=== PATIENT | female | born 1970 | race African-American/Black ===

== ENCOUNTER 2019-06-26 01:01 | Emergency (ER) | payer MEDICAID ==
[~2019-06-26] VITALS: Ht 162.6 cm; Wt 149.7 kg
[2019-06-26 01:18] VITALS: BP 108/61
[2019-06-26] MEDS ORDERED: BACLOFEN 10 MG TAB PO ONE (03:15)
[2019-06-26] MEDS ORDERED: DexAMETHasone SOD PHOS 10MG/1ML VIAL INJ IM ONE (03:15)
== END 2019-06-26 04:08 | disposition home or self-care (01) ==
LOC: ER 01:03
DX: M62.838 Other muscle spasm (principal); M54.2 Cervicalgia; I10 Essential (primary) hypertension; E11.9 Type 2 diabetes mellitus without complications
CPT/HCPCS: 72040; 96372; 99283; J1100

== ENCOUNTER 2021-04-18 06:48 | Inpatient (IN) | payer MEDICAID ==
[~2021-04-18] VITALS: Ht 160 cm; Wt 184.6 kg
[2021-04-18] MEDS: DOXYCYCLINE 100MG/250ML 250 ML IV SCH
[2021-04-18] MEDS ORDERED: SODIUM CHLORIDE 0.9% 1,000 ML IV ONE (07:45)
[2021-04-18] MEDS ORDERED: SODIUM CHLORIDE 0.9% 1,000 ML IVB ONE (07:45)
[2021-04-18] MEDS ORDERED: AZITHROMYCIN 500MG/ 250ML 250 ML IV ONE (08:15)
[2021-04-18] MEDS ORDERED: hydrOXYchloroQUINE SULFATE 200 MG TAB PO ONE (08:15)
[2021-04-18] MEDS ORDERED: ASCORBIC ACID 500 MG TAB PO ONE (08:15)
[2021-04-18] MEDS ORDERED: ZINC SULFATE 220mg CAP or TAB PO ONE (08:15)
[2021-04-18] MEDS ORDERED: CHOLECALCIFEROL (VITD3) 2,000 UNIT CAP/TAB PO ONE (08:15)
[2021-04-18 08:16] LABS: Basophils # (auto) 0 10 ^3/uL (0-0.2); Basophils % (auto) 0.7 % (0.0-2.0); Eosinophils # (auto) 0 10 ^3/uL (0-0.8); Eosinophils % (auto) 0.4 % (0.0-7.0); Hemoglobin 9.8 g/dL (12.2-16.2); Lymphocytes # (auto) 0.5 10 ^3/uL (0.4-5.4); Lymphocytes % (auto) 13.8 % (10.0-50.0); Mean Corpuscular Hgb Conc. 30.7 g/dL (32.0-36.0); Monocytes # (auto) 0.1 10 ^3/uL (0-1.3); Monocytes % (auto) 3.2 % (0.0-12.0); Neutrophils # (auto) 2.7 10 ^3/uL (1.6-8.6); Neutrophils % (auto) 81.9 % (37.0-80.0); Nucleated Red Blood Cells % 1.9 %; Red Blood Cells 3.17 10^6/uL (4.0-5.20); White Blood Cell 3.3 10^3/uL (4.4-10.8)
[2021-04-18 08:17] LABS: Red Cell Distribution Width 24.4 % (11.8-14.3)
[2021-04-18 08:42] LABS: Calcium 7.5 mg/dL (8.5-10.1); Magnesium 2.3 mg/dL (1.6-2.6)
[2021-04-18 08:51] LABS: BUN/Creatinine Ratio 17.9; Bilirubin, Total 0.3 mg/dL (0.2-1.0); Total Protein 7.8 g/dL (6.4-8.2)
[2021-04-18 08:56] LABS: Potassium 5.8 mmol/L (3.5-5.1)
[2021-04-18 10:23] LABS: Urine Amorphous Crystal FEW /hpf (None Seen); Urine Bacteria FEW /hpf (None Seen); Urine Blood 1+ /uL (Negative); Urine Hyaline Cast FEW /lpf (0 - 2); Urine Specific Gravity 1.018 (1.001-1.035); Urine WBC 2 /hpf (0 - 5)
[2021-04-18] MEDS ORDERED: ONDANSETRON HCL 4 MG/2 ML VIAL IV ONE (10:30)
[2021-04-18] MEDS ORDERED: ALBUTEROL SULF 2.5 MG/0.5ML(0.5%) NEB SOLN NEB ONE (12:30)
[2021-04-18] MEDS ORDERED: CALCIUM CHL 100MG/ML 1,000 MG in D5W 5% 100 ML IV ONE (12:30)
[2021-04-18] MEDS ORDERED: MORPHINE SULF INJ 2 MG/ML SYRINGE 1ML IV PRN ×2 (12:30)
[2021-04-18] MEDS ORDERED: ONDANSETRON HCL 4 MG/2 ML VIAL IV PRN (12:30)
[2021-04-18] MEDS ORDERED: NITROGLYCERIN 0.4 MG SL TAB SL PRN (12:30)
[2021-04-18] MEDS ORDERED: InsuLIN REG 1unit/0.01ml Soln (100units/ml) IV ONE (12:30)
[2021-04-18] MEDS ORDERED: SODIUM CHLORIDE 0.9% 1,000 ML IV SCH (12:30)
[2021-04-18] MEDS ORDERED: SODIUM BICARBONATE 8.4 % INJ 50ML VIAL IV ONE ×2 (12:30→23:30)
[2021-04-18] MEDS ORDERED: ACETAMINOPHEN 500 MG TAB PO PRN (12:30)
[2021-04-18 13:59] VITALS: BP 145/88
[2021-04-18] MEDS ORDERED: DEXTROSE (50%) 50ML SYRG IV PRN (15:00)
[2021-04-18] MEDS: InsuLIN REG 1unit/0.01ml Soln (100units/ml) SC SCH ×2 (17:00→22:00)
[2021-04-18] MEDS: ACCU-CHEK COMFORT CURVE STRIP VI SCH ×2 (17:00→22:00)
[2021-04-18] MEDS: ALBUTEROL SULF HFA 90MCG INH 200DOSE IN SCH ×3 (18:00→23:05)
[2021-04-18] MEDS ORDERED: POM PO (18:12)
[2021-04-18] MEDS ORDERED: FURO20TA3 PO (18:12)
[2021-04-18] MEDS ORDERED: SODI10PA PO (18:12)
[2021-04-18] MEDS ORDERED: PSYL0.524 PO (18:12)
[2021-04-18] MEDS ORDERED: CHOL20007 PO (18:12)
[2021-04-18] MEDS ORDERED: ATOR20TA50 PO (18:12)
[2021-04-18] MEDS ORDERED: FERR325T20 PO (18:12)
[2021-04-18] MEDS ORDERED: AMLO-489 PO (18:12)
[2021-04-18] MEDS ORDERED: CHOL20007 OR (18:12)
[2021-04-18] MEDS ORDERED: HYDR25TA4 PO (18:12)
[2021-04-18] MEDS ORDERED: CARV12.544 PO (18:12)
[2021-04-18] MEDS ORDERED: NIFE1TAB30 PO (18:12)
[2021-04-18 21:55] VITALS: BP 131/103
[2021-04-18] MEDS: FAMOTIDINE (10MG/ML) 2ML VL IV SCH (22:00)
[2021-04-18] MEDS ORDERED: SODIUM BICARBONATE 8.4% INJ 50ML SYRINGE ONE (23:40)
[2021-04-19] VITALS (61 sets, daily range): BP systolic 85–206; BP diastolic 21–91
[2021-04-19] MEDS ORDERED: ETOMIDATE (2MG/ML) 20ML VIAL IV ONE ×2 (03:48→11:51)
[2021-04-19] MEDS ORDERED: SUCCINYLCHOLINE CHLORIDE 20 MG/ML 10ML VIAL IV ONE (03:49)
[2021-04-19] MEDS ORDERED: SODIUM BICARBONATE 8.4% INJ 50ML SYRINGE ONE ×2 (04:06→06:39)
[2021-04-19] MEDS ORDERED: SODIUM BICARBONATE 8.4 % INJ 50ML VIAL IV ONE ×3 (04:07→06:45)
[2021-04-19] MEDS ORDERED: SODIUM BICARBONATE 50ML VIAL 150 ML in SOD CHL 0.45% 1,000 ML IV SCH ×4 (04:15)
[2021-04-19] MEDS: LORazepam 2MG/ML-1ML VIAL IV PRN ×2 (04:20→11:00)
[2021-04-19] MEDS: ALBUTEROL SULF HFA 90MCG INH 200DOSE IN SCH (06:00)
[2021-04-19] MEDS: ACCU-CHEK COMFORT CURVE STRIP VI SCH ×4 (06:10→22:25)
[2021-04-19] MEDS: InsuLIN REG 1unit/0.01ml Soln (100units/ml) SC SCH ×4 (06:11→22:25)
[2021-04-19] MEDS ORDERED: SODIUM BICARBONATE 50ML VIAL 150 ML in D5W 5% 1,000 ML IV SCH (06:45)
[2021-04-19 07:54] LABS: Albumin 2.7 g/dL (3.4-5.0); Calcium 7.3 mg/dL (8.5-10.1)
[2021-04-19 07:58] LABS: BUN/Creatinine Ratio 17.5; Bilirubin, Total 0.2 mg/dL (0.2-1.0); Total Protein 7.7 g/dL (6.4-8.2)
[2021-04-19 08:06] LABS: Potassium 6.3 mmol/L (3.5-5.1)
[2021-04-19] MEDS ORDERED: SODIUM BICARBONATE 8.4% INJ 50ML SYRINGE IV ONE (08:45)
[2021-04-19] MEDS ORDERED: InsuLIN REG 1unit/0.01ml Soln (100units/ml) IV ONE (08:45)
[2021-04-19] MEDS ORDERED: ALBUTEROL SULF 2.5 MG/0.5ML(0.5%) NEB SOLN NEB ONE (08:45)
[2021-04-19] MEDS ORDERED: SODIUM ZIRCONIUM CYCL 10 GM PAK PO ONE (08:45)
[2021-04-19 09:15] LABS: Basophils # (auto) 0 10 ^3/uL (0-0.2); Basophils % (auto) 0.6 % (0.0-2.0); Eosinophils # (auto) 0 10 ^3/uL (0-0.8); Eosinophils % (auto) 0.1 % (0.0-7.0); Hematocrit 33.3 % (36.0-46.0); Hemoglobin 10.2 g/dL (12.2-16.2); Lymphocytes # (auto) 0.4 10 ^3/uL (0.4-5.4); Lymphocytes % (auto) 5.5 % (10.0-50.0); Mean Corpuscular Hemoglobin 30.6 pg (28.0-32.0); Mean Corpuscular Hgb Conc. 30.8 g/dL (32.0-36.0); Mean Corpuscular Volume 99.6 fL (80.0-100.0); Monocytes # (auto) 0.1 10 ^3/uL (0-1.3); Monocytes % (auto) 0.6 % (0.0-12.0); Neutrophils # (auto) 7.4 10 ^3/uL (1.6-8.6); Neutrophils % (auto) 93.2 % (37.0-80.0); Nucleated Red Blood Cells % 0.2 %; Red Blood Cells 3.34 10^6/uL (4.0-5.20); White Blood Cell 7.9 10^3/uL (4.4-10.8)
[2021-04-19 09:17] LABS: Red Cell Distribution Width 24.6 % (11.8-14.3)
[2021-04-19 09:36] LABS: INR 1.16 (0.9-1.15); Partial Thromboplastin Time 28.1 sec (23.0-31.2)
[2021-04-19] MEDS: CHOLECALCIFEROL (VITD3) 1,000UNIT=25mCg TAB PO SCH (10:00)
[2021-04-19] MEDS: FAMOTIDINE (10MG/ML) 2ML VL IV SCH (10:18)
[2021-04-19] MEDS: DOXYCYCLINE 100MG/250ML 250 ML IV SCH ×2 (10:18→21:47)
[2021-04-19] MEDS: methylPREDNISolone SOD SUCC 40 MG/ML VL IV SCH ×3 (10:18→21:47)
[2021-04-19] MEDS: ENOXAPARIN SOD 40 MG/0.4 ML SYRINGE SC SCH (10:19)
[2021-04-19] MEDS ORDERED: MIDAZOLAM DRIP 50 mg/50mL 50 ML IV ONE (11:51)
[2021-04-19] MEDS ORDERED: ROCURONIUM 10MG/ML 10ML VIAL IV ONE (11:51)
[2021-04-19] MEDS ORDERED: fentaNYL Drip 2500mCg/250mlNS 250 ML IV ONE (11:51)
[2021-04-19] MEDS ORDERED: PROPOFOL 100 ML IV ONE (11:52)
[2021-04-19] MEDS ORDERED: NOREPINEPHRINE 8 MG/250ML KIT 250 ML IV ONE (12:28)
[2021-04-19] MEDS: ATRACURIUM BESYLATE 1,000 MG in D5W 5% 150 ML IV SCH (12:45)
[2021-04-19] MEDS ORDERED: HEPARIN 1,000 UNITS/ml 1ML VIAL ONE (12:47)
[2021-04-19] MEDS ORDERED: MIDAZOLAM DRIP 50 mg/50mL 100 ML IV ONE (13:46)
[2021-04-19] MEDS ORDERED: PROPOFOL 200 ML IV ONE (13:46)
[2021-04-19] MEDS ORDERED: MIDODRINE HCL 10 MG TAB NG ONE (14:00)
[2021-04-19] MEDS ORDERED: SODIUM CHL 0.9% 1000 ML BAG XX ONE (14:00)
[2021-04-19] MEDS: ALBUMIN 25% 100 ML IV SCH ×2 (14:00→15:00)
[2021-04-19] MEDS ORDERED: methylPREDNISolone SOD SUCC 40 MG/ML VL IV ONE (14:30)
[2021-04-19] MEDS ORDERED: ACETAMINOPHEN 650 mg PER 20.3 mL UD PO ONE (14:30)
[2021-04-19] MEDS ORDERED: diphenhdrAMINE HCL 50 MG/1 ML VL IV ONE (14:30)
[2021-04-19] MEDS ORDERED: TOCILIZUMAB 400 MG in SODIUM CHL 0.9% 80 ML IV ONE (15:00)
[2021-04-19 15:19] LABS: Calcium 7.1 mg/dL (8.5-10.1); Potassium 5.3 mmol/L (3.5-5.1)
[2021-04-19 15:22] LABS: BUN/Creatinine Ratio 17.5
[2021-04-19] MEDS: fentaNYL Drip 2500mCg/250mlNS 250 ML IV SCH ×2 (17:09→22:35)
[2021-04-19] MEDS: MIDAZOLAM DRIP 50 mg/50mL 50 ML IV SCH ×3 (17:11→23:30)
[2021-04-19] MEDS: PROPOFOL 100 ML IV SCH ×2 (17:11→22:52)
[2021-04-19] MEDS: FUROSEMIDE 40 MG/4 ML VIAL IV SCH (18:00)
[2021-04-19] MEDS: hydrALAZINE HCL 20 MG/ML VL ONE (21:15)
[2021-04-19] MEDS ORDERED: hydrALAZINE HCL 20 MG/ML VL IV PRN (21:15)
[2021-04-20] VITALS (103 sets, daily range): BP systolic 85–208; BP diastolic 47–90
[2021-04-20] MEDS ORDERED: hydrALAZINE HCL 20 MG/ML VL ONE (00:43)
[2021-04-20] MEDS ORDERED: hydrALAZINE HCL 20 MG/ML VL IV ONE (00:45)
[2021-04-20] MEDS: PROPOFOL 100 ML IV SCH ×4 (01:40→22:00)
[2021-04-20] MEDS: MIDAZOLAM DRIP 50 mg/50mL 50 ML IV SCH ×3 (02:50→22:00)
[2021-04-20] MEDS ORDERED: NITROGLYCERIN 50MG/250ML 250 ML IV ONE (03:01)
[2021-04-20] MEDS: NITROGLYCERIN 50MG/250ML 250 ML IV SCH (03:10)
[2021-04-20 04:33] LABS: Basophils # (auto) 0 10 ^3/uL (0-0.2); Basophils % (auto) 0.2 % (0.0-2.0); Eosinophils # (auto) 0 10 ^3/uL (0-0.8); Hematocrit 26.5 % (36.0-46.0); Hemoglobin 8.8 g/dL (12.2-16.2); Lymphocytes # (auto) 0.6 10 ^3/uL (0.4-5.4); Mean Corpuscular Hemoglobin 31.4 pg (28.0-32.0); Mean Corpuscular Volume 95.1 fL (80.0-100.0); Monocytes # (auto) 0.1 10 ^3/uL (0-1.3); Monocytes % (auto) 2.6 % (0.0-12.0); Neutrophils # (auto) 4.8 10 ^3/uL (1.6-8.6); Neutrophils % (auto) 87.2 % (37.0-80.0); Red Blood Cells 2.79 10^6/uL (4.0-5.20); White Blood Cell 5.5 10^3/uL (4.4-10.8)
[2021-04-20 04:55] LABS: Calcium 7.3 mg/dL (8.5-10.1); Potassium 5.1 mmol/L (3.5-5.1)
[2021-04-20 05:01] LABS: Albumin 2.3 g/dL (3.4-5.0); BUN/Creatinine Ratio 17.5; Bilirubin, Total 0.5 mg/dL (0.2-1.0); Total Protein 6.4 g/dL (6.4-8.2)
[2021-04-20] MEDS: ACCU-CHEK COMFORT CURVE STRIP VI SCH ×4 (06:16→22:00)
[2021-04-20] MEDS: FUROSEMIDE 40 MG/4 ML VIAL IV SCH (06:16)
[2021-04-20] MEDS: InsuLIN REG 1unit/0.01ml Soln (100units/ml) SC SCH ×4 (06:17→22:30)
[2021-04-20] MEDS: ATRACURIUM BESYLATE 1,000 MG in D5W 5% 150 ML IV SCH ×2 (06:22→23:59)
[2021-04-20] MEDS ORDERED: SODIUM CHL 0.9% 1000 ML BAG XX ONE (07:00)
[2021-04-20] MEDS ORDERED: ACETAMINOPHEN 650 mg PER 20.3 mL UD PO ONE (10:00)
[2021-04-20] MEDS: FAMOTIDINE (10MG/ML) 2ML VL IV SCH (10:00)
[2021-04-20] MEDS ORDERED: diphenhdrAMINE HCL 50 MG/1 ML VL IV ONE (10:00)
[2021-04-20] MEDS: DOXYCYCLINE 100MG/250ML 250 ML IV SCH ×2 (10:00→22:00)
[2021-04-20] MEDS: CHOLECALCIFEROL (VITD3) 1,000UNIT=25mCg TAB PO SCH (10:00)
[2021-04-20] MEDS: methylPREDNISolone SOD SUCC 40 MG/ML VL IV SCH ×2 (10:00→22:00)
[2021-04-20] MEDS: ENOXAPARIN SOD 40 MG/0.4 ML SYRINGE SC SCH ×2 (10:00→22:00)
[2021-04-20] MEDS ORDERED: TOCILIZUMAB 400 MG in SODIUM CHL 0.9% 80 ML IV ONE (10:30)
[2021-04-20] MEDS ORDERED: FUROSEMIDE 40 MG/4 ML VIAL IV SCH (14:15)
[2021-04-20] MEDS: FUROSEMIDE 100 MG/10ML VIAL IV SCH ×2 (14:31→22:00)
[2021-04-20] MEDS: amLODIPine BESYLATE 5 MG TAB PO SCH (20:30)
[2021-04-20] MEDS: hydrALAZINE HCL 25 MG TAB PO SCH (22:00)
[2021-04-20] MEDS: LABETALOL HCL 200 MG TAB PO SCH (22:00)
[2021-04-20] MEDS: fentaNYL Drip 2500mCg/250mlNS 250 ML IV SCH (22:30)
[2021-04-21] VITALS (105 sets, daily range): BP systolic 107–140; BP diastolic 46–63
[2021-04-21] MEDS: PROPOFOL 100 ML IV SCH (00:30)
[2021-04-21] MEDS: NITROGLYCERIN 50MG/250ML 250 ML IV SCH (04:20)
[2021-04-21 04:30] LABS: Basophils # (auto) 0 10 ^3/uL (0-0.2); Eosinophils # (auto) 0 10 ^3/uL (0-0.8); Hemoglobin 8.4 g/dL (12.2-16.2); Monocytes # (auto) 0.2 10 ^3/uL (0-1.3)
[2021-04-21 04:31] LABS: Basophils % (auto) 0.3 % (0.0-2.0); Hematocrit 24.9 % (36.0-46.0); Lymphocytes # (auto) 0.5 10 ^3/uL (0.4-5.4); Lymphocytes % (auto) 6.8 % (10.0-50.0); Mean Corpuscular Hemoglobin 32.1 pg (28.0-32.0); Mean Corpuscular Hgb Conc. 33.7 g/dL (32.0-36.0); Monocytes % (auto) 3.3 % (0.0-12.0); Neutrophils # (auto) 6.3 10 ^3/uL (1.6-8.6); Neutrophils % (auto) 89.6 % (37.0-80.0); Nucleated Red Blood Cells % 1.3 %; Red Blood Cells 2.62 10^6/uL (4.0-5.20)
[2021-04-21 04:43] LABS: Red Cell Distribution Width 23.5 % (11.8-14.3)
[2021-04-21 04:46] LABS: BUN/Creatinine Ratio 15.8; Calcium 7.2 mg/dL (8.5-10.1); Potassium 4.7 mmol/L (3.5-5.1)
[2021-04-21] MEDS: InsuLIN REG 1unit/0.01ml Soln (100units/ml) SC SCH ×5 (06:12→23:45)
[2021-04-21] MEDS: FUROSEMIDE 100 MG/10ML VIAL IV SCH ×3 (06:12→21:38)
[2021-04-21] MEDS: ACCU-CHEK COMFORT CURVE STRIP VI SCH ×5 (06:12→23:44)
[2021-04-21] MEDS: LABETALOL HCL 200 MG TAB PO SCH ×2 (10:00→22:00)
[2021-04-21] MEDS: fentaNYL Drip 2500mCg/250mlNS 250 ML IV SCH (10:22)
[2021-04-21] MEDS: DOXYCYCLINE 100MG/250ML 250 ML IV SCH ×2 (10:22→21:39)
[2021-04-21] MEDS: methylPREDNISolone SOD SUCC 40 MG/ML VL IV SCH ×2 (10:23→21:38)
[2021-04-21] MEDS: FAMOTIDINE (10MG/ML) 2ML VL IV SCH (10:23)
[2021-04-21] MEDS: hydrALAZINE HCL 25 MG TAB PO SCH ×2 (10:23→22:00)
[2021-04-21] MEDS: ENOXAPARIN SOD 40 MG/0.4 ML SYRINGE SC SCH ×2 (10:23→21:38)
[2021-04-21] MEDS: amLODIPine BESYLATE 5 MG TAB PO SCH (10:24)
[2021-04-21] MEDS: CHOLECALCIFEROL (VITD3) 1,000UNIT=25mCg TAB PO SCH (10:24)
[2021-04-21] MEDS ORDERED: DEXTROSE (50%) 50ML SYRG IV PRN (11:45)
[2021-04-21] MEDS ORDERED: metOLazone 5 MG TAB PO ONE (12:45)
[2021-04-21] MEDS ORDERED: SODIUM CHL 0.9% 1000 ML BAG XX ONE (13:30)
[2021-04-21] MEDS: ATRACURIUM BESYLATE 1,000 MG in D5W 5% 150 ML IV SCH (17:36)
[2021-04-21] MEDS ORDERED: EPOETIN ALFA-EPBX 10,000 UNIT/1ML VIAL SC ONE (21:00)
[2021-04-22] VITALS (107 sets, daily range): BP systolic 97–214; BP diastolic 35–97
[2021-04-22] MEDS: ALBUTEROL SULF 2.5 MG/0.5ML(0.5%) NEB SOLN NEB PRN ×2 (00:02→06:00)
[2021-04-22] MEDS: IPRATROPIUM BROM 0.5 MG/2.5ML INH SOL NEB PRN ×2 (00:03→06:00)
[2021-04-22] MEDS: PROPOFOL 100 ML IV SCH ×3 (00:24→15:30)
[2021-04-22] MEDS: MIDAZOLAM DRIP 50 mg/50mL 50 ML IV SCH ×3 (00:24→11:30)
[2021-04-22] MEDS: fentaNYL Drip 2500mCg/250mlNS 250 ML IV SCH ×2 (00:28→09:23)
[2021-04-22 04:20] LABS: BUN/Creatinine Ratio 16.8; Potassium 4.6 mmol/L (3.5-5.1)
[2021-04-22] MEDS: ACCU-CHEK COMFORT CURVE STRIP VI SCH ×3 (06:03→18:54)
[2021-04-22] MEDS: InsuLIN REG 1unit/0.01ml Soln (100units/ml) SC SCH ×3 (06:04→18:55)
[2021-04-22] MEDS: FUROSEMIDE 100 MG/10ML VIAL IV SCH (06:05)
[2021-04-22] MEDS: DOPamine 1600MCG/ML D5W 250 ML IV SCH ×3 (09:12→19:37)
[2021-04-22] MEDS: FUROSEMIDE INJECTION 100 MG in SODIUM CHL 0.9% 100 ML IV SCH ×7 (09:13→21:48)
[2021-04-22] MEDS: ENOXAPARIN SOD 40 MG/0.4 ML SYRINGE SC SCH (09:14)
[2021-04-22] MEDS: CHOLECALCIFEROL (VITD3) 1,000UNIT=25mCg TAB PO SCH (09:14)
[2021-04-22] MEDS: ALBUMIN 25% 100 ML IV SCH ×3 (09:17→23:16)
[2021-04-22] MEDS ORDERED: metOLazone 5 MG TAB PO SCH (10:00)
[2021-04-22] MEDS: LABETALOL HCL 200 MG TAB PO SCH ×2 (10:00→20:26)
[2021-04-22] MEDS: amLODIPine BESYLATE 5 MG TAB PO SCH (10:00)
[2021-04-22] MEDS ORDERED: Nepro With Carb Steady 1 Liter Bottle NG SCH (10:00)
[2021-04-22] MEDS: hydrALAZINE HCL 25 MG TAB PO SCH ×2 (10:00→20:25)
[2021-04-22] MEDS: methylPREDNISolone SOD SUCC 40 MG/ML VL IV SCH ×2 (10:01→21:44)
[2021-04-22] MEDS: FAMOTIDINE (10MG/ML) 2ML VL IV SCH (10:02)
[2021-04-22] MEDS: DOXYCYCLINE 100MG/250ML 250 ML IV SCH ×2 (11:08→21:45)
[2021-04-22] MEDS: NITROGLYCERIN 50MG/250ML 250 ML IV SCH ×2 (11:08→20:28)
[2021-04-22] MEDS: ATRACURIUM BESYLATE 1,000 MG in D5W 5% 150 ML IV SCH ×2 (11:13→16:00)
[2021-04-22] MEDS ORDERED: SODIUM BICARBONATE 8.4 % INJ 50ML VIAL IV ONE (16:30)
[2021-04-22] MEDS ORDERED: HEPARIN SODIUM (PORCINE) 5000 UNITS/ML 1ML VIAL SC SCH (22:00)
[2021-04-23] VITALS (27 sets, daily range): BP systolic 56–182; BP diastolic 29–78
[2021-04-23] MEDS: InsuLIN REG 1unit/0.01ml Soln (100units/ml) SC SCH ×2 (01:06→05:26)
[2021-04-23] MEDS: FUROSEMIDE INJECTION 100 MG in SODIUM CHL 0.9% 100 ML IV SCH ×3 (01:07→05:24)
[2021-04-23] MEDS: DOPamine 1600MCG/ML D5W 250 ML IV SCH (02:07)
[2021-04-23] MEDS ORDERED: NOREPINEPHRINE 8 MG/250ML KIT 250 ML IV SCH (04:15)
[2021-04-23] MEDS ORDERED: SODIUM BICARBONATE 50ML VIAL 150 ML in D5W 5% 1,000 ML IV SCH (04:15)
[2021-04-23] MEDS ORDERED: SODIUM BICARBONATE 8.4% INJ 50ML SYRINGE ONE ×2 (04:18→06:46)
[2021-04-23 04:35] LABS: White Blood Cell 16.6 10^3/uL (4.4-10.8)
[2021-04-23 04:37] LABS: Hemoglobin 10.1 g/dL (12.2-16.2); Mean Corpuscular Hemoglobin 30.9 pg (28.0-32.0); Mean Corpuscular Hgb Conc. 30.6 g/dL (32.0-36.0); Mean Corpuscular Volume 100.9 fL (80.0-100.0); Red Blood Cells 3.27 10^6/uL (4.0-5.20)
[2021-04-23 04:38] LABS: Red Cell Distribution Width 23.8 % (11.8-14.3)
[2021-04-23 04:39] LABS: Basophils % (manual) 0 (0.0-2.0); Blast Cells 0; Eosinophils % (manual) 0 (0-7); Metamyelocytes % 0; Monocytes % (manual) 0 (0-12); Promyelocytes % 0; Reactive Lymphocytes 0
[2021-04-23 04:49] LABS: INR 1.2 (0.9-1.15); Partial Thromboplastin Time 33.6 sec (23.0-31.2)
[2021-04-23 04:52] LABS: Albumin 3.2 g/dL (3.4-5.0); BUN/Creatinine Ratio 16.1
[2021-04-23 04:55] LABS: Bilirubin, Total 0.6 mg/dL (0.2-1.0); Total Protein 7.4 g/dL (6.4-8.2)
[2021-04-23 05:06] LABS: Band Neutrophils % (manual) 20; Lymphocytes % (manual) 6 (10.0-50.0); Myelocytes % 1
[2021-04-23 05:12] LABS: Potassium 6.3 mmol/L (3.5-5.1)
[2021-04-23] MEDS: ACCU-CHEK COMFORT CURVE STRIP VI SCH ×2 (05:36)
[2021-04-23] MEDS ORDERED: EPINEPHrine HCL 250 ML IV ONE (06:18)
[2021-04-23] MEDS ORDERED: EPINEPHrine HCL 250 ML IV SCH (06:45)
[2021-04-23] MEDS ORDERED: CALCIUM CHLOR(10%) 100MG/ML 10ML SYRINGE IV ONE ×2 (06:47→08:30)
[2021-04-23] MEDS ORDERED: SODIUM BICARBONATE 8.4% INJ 50ML SYRINGE IV ONE (08:30)
[2021-04-23] MEDS ORDERED: EPINEPHrine HCL 1 MG/10 ML SYRG IV ONE (08:30)
[2021-04-23] MEDS ORDERED: ATROPINE SULF 1 MG/10ml SYR IV ONE (08:30)
[2021-04-23 14:11] LABS: Hepatitis A Ab IgM Negative; Hepatitis B Core IgM Negative; Hepatitis B Surface Antigen Negative (Negative); Hepatitis C Antibody Negative (Negative)
== END 2021-04-23 16:15 | DRG 720 ==
LOC: ER 06:48 → EDBD 06:48 → TELE 12:19 → TELE-EAST 14:30 → ICU WEST 04-19 03:42
PROVIDERS: ADMIT Hospitalist; ATTEND Hospitalist
PROC: 5A1955Z Respiratory Ventilation, Greater than 96 Consecutive Hours (ICD-10-PCS; principal; 2021-04-19)
PROC: XW033H5 Introduction of Tocilizumab into Peripheral Vein, Percutaneous Approach, New Technology Group 5 (ICD-10-PCS; 2021-04-19)
PROC: 02HV33Z Insertion of Infusion Device into Superior Vena Cava, Percutaneous Approach (ICD-10-PCS; 2021-04-19)
PROC: B548ZZA Ultrasonography of Superior Vena Cava, Guidance (ICD-10-PCS; 2021-04-19)
PROC: 03HY32Z Insertion of Monitoring Device into Upper Artery, Percutaneous Approach (ICD-10-PCS; 2021-04-19)
PROC: 0BH17EZ Insertion of Endotracheal Airway into Trachea, Via Natural or Artificial Opening (ICD-10-PCS; 2021-04-19)
PROC: 02HV33Z Insertion of Infusion Device into Superior Vena Cava, Percutaneous Approach (ICD-10-PCS; 2021-04-19)
PROC: B548ZZA Ultrasonography of Superior Vena Cava, Guidance (ICD-10-PCS; 2021-04-19)
PROC: 5A1D70Z Performance of Urinary Filtration, Intermittent, Less than 6 Hours Per Day (ICD-10-PCS; 2021-04-19)
PROC: 5A09357 Assistance with Respiratory Ventilation, Less than 24 Consecutive Hours, Continuous Positive Airway Pressure (ICD-10-PCS; 2021-04-19)
DX: A41.89 Other specified sepsis (principal); U07.1 COVID-19; J96.01 Acute respiratory failure with hypoxia; I46.9 Cardiac arrest, cause unspecified; E11.22 Type 2 diabetes mellitus with diabetic chronic kidney disease; N17.9 Acute kidney failure, unspecified; J12.82 Pneumonia due to coronavirus disease 2019; E87.2 Acidosis; I13.0 Hypertensive heart and chronic kidney disease with heart failure and stage 1 through stage 4 chronic kidney disease, or unspecified chronic kidney disease; I16.0 Hypertensive urgency; I50.9 Heart failure, unspecified; J45.909 Unspecified asthma, uncomplicated; J98.11 Atelectasis; I25.10 Atherosclerotic heart disease of native coronary artery without angina pectoris; N18.30 Chronic kidney disease, stage 3 unspecified; E44.1 Mild protein-calorie malnutrition; E87.5 Hyperkalemia; E66.01 Morbid (severe) obesity due to excess calories; D63.1 Anemia in chronic kidney disease; Z79.899 Other long term (current) drug therapy; Z68.45 Body mass index [BMI] 70 or greater, adult; Z78.9 Other specified health status; Z79.4 Long term (current) use of insulin; Z82.49 Family history of ischemic heart disease and other diseases of the circulatory system; Z83.3 Family history of diabetes mellitus; Z99.2 Dependence on renal dialysis
CPT/HCPCS: 36415; 36600; 71045; 80048; 80053; 80074; 81001; 82728; 82805; 82962; 83735; 84443; 84484; 85007; 85025; 85027; 85049; 85379; 85610; 85730; 86141; 87070; 87077; 87081; 87205; 87426; 90935; 93005; 94003; 94640; 94660; 96361; 96365; 96367; G0378; J0171; J0330; J1642; J1815; J2250; J2405; J2704; J3490; J7060; P9047